=== PATIENT | male | born 1990 | race Hispanic/Latino ===

== ENCOUNTER 2024-07-14 19:41 | Emergency (ER) | payer SELFPAY ==
[~2024-07-14] VITALS: Ht 170.2 cm; Wt 74.8 kg
[2024-07-14] MEDS: ketOROlac 15MG/ML VIAL (15MG/ML) IV ONE (22:03)
[2024-07-14] MEDS: cefTRIAXone 1G VIAL IVPB ONE (22:03)
[2024-07-14] MEDS: teTANUS/diphthERIA TOXOID [ADULT] 0.5 ML VIAL IM ONE (22:03)
[2024-07-14] MEDS ORDERED: SULF1TAB42 PO (22:56)
--- NOTE | 2024-07-14 22:59 | ERN ---
General Chief Complaint: FOOT INJURY/PAIN Stated Complaint: NAIL IN FOOT Time Seen by MD: 21:50 Time Seen by Midlevel: 21:50 Source: patient History of Present Illness Initial Comments Patient is a 34-year-old male with no significant past medical history presenting to the emergency department after stepping on a nail. Patient states this occurred yesterday. He has been taking ibuprofen with little to no relief. Denies having any past medical history including diabetes. Today he noticed an increase in swelling so he decided to report to the ER for further evaluation. Allergies: Coded Allergies: No Known Drug Allergies (Unverified Allergy, Unknown, 10/25/23) Home Meds Active Scripts Sulfamethoxazole/Trimethoprim (Bactrim Ds Tablet) 800 Mg-160 Mg Tablet, 1 TAB PO BID for 7 Days, #14 TAB 0 Refills Prov:NATE ROSAS 07/14/24 Past Medical History Past Medical History: No Pertinent History Past Surgical History: None ROS Dictation CONSTITUTIONAL: Negative except for HPI HEAD/FACE: Negative except for HPI EENT: Negative except for HPI RESPIRATORY: Negative except for HPI GASTROINTESTINAL/ABDOMINAL: Negative except for HPI GENITOURINARY: Negative except for HPI MUSCULOSKELETAL: Negative except for HPI INTEGUMENTARY: Negative except for HPI NEUROLOGICAL/PSYCH: Negative except for HPI HEMATOLOGIC/LYMPHATIC: Negative except for HPI All Systems Negative, Except as noted above. 13 point review of systems assessed and all negative except for above. Physical Exam Physical Exam Dictation PHYSICAL EXAM: GENERAL: alert,, awake oriented x 3 HEENT: EOMI, Sclera non icteric, moist mucosa NECK: Supple, no JVD, trachea midline LUNGS: Clear breath sounds bilaterally. No wheezes HEART: Regular rate and rhythm. Normal S1 and S2, without murmurs ABD: Abdomen soft, nontender. Bowel sounds present EXT: No clubbing or cyanosis, NEURO: Alert and oriented to person, follows commands EXT: Mild swelling to the plantar aspect of the right foot, there is what appears to be a healing puncture wound MDM MDM: Differential diagnosis: puncture wound, laceration, fracture, cellulitis, abscess There are no social concerns with this patient. Prescription drug management Prescriptions will include: Bactrim Medical management and examination interpretation discussions were had by me with other qualified healthcare professionals as indicated for the patient's care. ED Course Orders Procedure Category Date Status Time Tetanus,Diphtheria PHA 07/14/24 Complete Tox [Adult] (Diphther 22:00 Ceftriaxone 1g Vial PHA 07/14/24 Complete (Rocephine 1g Inj) 22:00 Ketorolac PHA 07/14/24 Complete Tromethamine 15mg/Ml 22:00 Foot Comp 3+Vws Rt RAD 07/14/24 Taken 21:51 Current Medications Medications (Trade) Dose Ordered Sig/Isabelle Route PRN Reason Start Time Stop Time Status Last Admin Dose Admin Ceftriaxone Sodium (ROCEphine 1G INJ) 1 gm ONCE ONCE IVPB 07/14/24 22:00 07/14/24 22:01 DC 07/14/24 22:03 Ketorolac Tromethamine (toRADol) 15 mg ONCE ONCE IV 07/14/24 22:00 07/14/24 22:01 DC 07/14/24 22:03 Tetanus/ Diphtheria Toxoids Adsorbed (DiphthERIA-teTANUS TOXOID [ADULT]/ DECAVAC) 0.5 ml ONCE ONCE IM 07/14/24 22:00 07/14/24 22:01 DC 07/14/24 22:03 Vital Signs Date Time Temp Pulse Resp B/P (MAP) Pulse Ox O2 Delivery O2 Flow Rate FiO2 07/14/24 19:44 98.6 66 18 146/75 99 DX & DISP Disposition: Discharge Departure Impression: Primary Impression: Puncture wound of right foot Condition: Stable Scripts Sulfamethoxazole/Trimethoprim (Bactrim Ds Tablet) 800 Mg-160 Mg Tablet 1 TAB PO BID for 7 Days, #14 TAB 0 Refills Prov: NATE ROSAS 07/14/24 Additional Instructions: Your right foot x-ray does not show any evidence of an acute fracture. You were given a tetanus vaccination in the emergency department. You were also given IV antibiotics and pain medication. I have given you a prescription for Bactrim which should help prevent an infection. If you develop any foot swelling/redness please report to your primary care doctor or return to the ER for further evaluation. Referrals: SELF,REFERRAL (PCP) Time of Disposition: 22:56 I have reviewed the case, and I agree with, Diagnosis and Plan I performed the substantive portion of the visit. I have reviewed and person ally made and approve the management plan that is documented in the note by myself or the LORELEI. I acknowledge for responsibility for the patient's management plan. NATE ROSAS Jul 14, 2024 22:58
[2024-07-14 23:04] VITALS: BP 133/63; PULSE 84; RESP 18; TEMP 98.6; O2SAT 99
--- NOTE | 2024-07-15 09:16 | HMCIMG ---
Exam Type: FOOT COMP 3+VWS RT Clinical Information: r/o fb s/p puncture wound with nail Comparison: None Findings: The bone examination is unremarkable. No fractures or dislocations are seen. No radiopaque foreign bodies are noted. Soft tissues are preserved. IMPRESSION: Normal examination.
== END 2024-07-14 23:15 | disposition home or self-care (01) ==
LOC: EDH 19:41
DX: S91.331A Puncture wound without foreign body, right foot, initial encounter (principal); W45.0XXA Nail entering through skin, initial encounter; Y93.89 Activity, other specified; Y92.89 Other specified places as the place of occurrence of the external cause; Y99.8 Other external cause status
CPT/HCPCS: 99284; 96374; 96375; 90714; 73630; 90471; J1885; J0696